=== PATIENT | female | born 1975 | race Caucasian/White ===

== ENCOUNTER 2021-05-06 20:05 | Emergency (ER) | payer OTHER ==
[~2021-05-06] VITALS: Ht 157.5 cm; Wt 90.7 kg
[2021-05-06] MEDS ORDERED: TOPROL XL25 M1 (20:29)
[2021-05-06] MEDS ORDERED: HYDRODIURIL12.5 MG (20:30)
[2021-05-06] MEDS ORDERED: NORVASC5 MG (20:30)
[2021-05-06] MEDS ORDERED: COZAAR100 MG (20:30)
[2021-05-06] MEDS ORDERED: ZITHROMAX500 MG PO (22:42)
== END 2021-05-06 22:41 | disposition home or self-care (01) ==
LOC: ER 20:05
DX: B34.9 Viral infection, unspecified (principal); J32.9 Chronic sinusitis, unspecified; Z03.818 Encounter for observation for suspected exposure to other biological agents ruled out

== ENCOUNTER → 2021-09-07 | Emergency (ER) | payer OTHER ==
[~2021-09-07] VITALS: Ht 157.5 cm; Wt 86.2 kg
[~2021-09-07] MED LIST: COZAAR100 MG; HYDRODIURIL12.5 MG; NORVASC5 MG; TOPROL XL25 M1; ZITHROMAX500 MG PO
== END | disposition home or self-care (01) ==
LOC: ER 04:49
DX: R10.2 Pelvic and perineal pain (principal)